=== PATIENT | female | born 1980 | race Caucasian/White ===

== ENCOUNTER 2022-11-26 04:48 | Emergency (ER) | payer BC, SELFPAY ==
[2022-11-26 05:08] VITALS: BP 137/86; PULSE 80; RESP 16; TEMP 36.4; O2SAT 98; BMI 21.2
--- NOTE | 2022-11-26 05:31 | ED_ITS ---
HPI - Allergic Reaction General Chief complaint: Allergic Reaction Stated complaint: allergic reaction Time Seen by Provider: 11/26/22 05:10 Source: patient Mode of arrival: Ambulatory History of Present Illness HPI narrative: Patient is a 42-year-old female. She is visiting from [place]. She is here [facility]. She is here for multiple complaints to include concern for an allergic reaction. States she woke up in the middle of the night feel like her tongue is swollen and then when she went to go use the bathroom and she looked in the mirror she thought the right side of her face was swollen as well. She is not had any vomiting. No fevers. No shortness of breath. She is unsure as to any potential exposures that she is had although she has been traveling quite a bit recently. She also states that she is having vaginal itching. She did use an [id number] vaginal cream yesterday. She thought that maybe her symptoms are improving somewhat. She also took Valtrex because of a cold sore on her mouth. She is not sexually active. No concern about sexually transmitted diseases. Related Data Allergies Allergy/AdvReac Type Severity Reaction Status Date / Time codeine Allergy Verified 11/26/22 05:42 Review of Systems Constitutional Constitutional: Reports system reviewed and no additional complaints, except as documented ENT Ears, Nose, Mouth, and Throat: Reports system reviewed and no additional complaints, except as documented Respiratory Respiratory: Reports system reviewed and no additional complaints, except as documented Genitourinary Genitourinary: Reports system reviewed and no additional complaints, except as documented Integumentary/Breasts Skin/Breast: Reports system reviewed and no additional complaints, except as documented Allergic/Immunologic Allergic/Immunologic: Reports system reviewed and no additional complaints, except as documented Exam Initial Vital Signs Initial Vital Signs: Vital Signs Temperature 97.5 F L 11/26/22 05:08 Pulse Rate 80 11/26/22 05:08 Respiratory Rate 16 11/26/22 05:08 Blood Pressure 137/86 11/26/22 05:08 Pulse Oximetry 98 11/26/22 05:08 Oxygen Delivery Method Room Air 11/26/22 05:08 Const General: cooperative, comfortable and No ill appearing HENMT Head: normal to inspection and normocephalic Face and sinus: normal facial exam Mouth: oral mucosae normal, lip normal and tongue normal Resp Effort & Inspection: normal respiratory effort Auscultation: clear to auscultation bilaterally Cardio Rate: regular rate GI Inspection: normal to inspection and non-distended Other: Normal external female genitalia She does have a white discharge which potentially could have been the intravaginal medication she used yesterday because of the itching. No other lesions noted. Skin General: no rashes or lesions noted Neuro General: patient alert, patient awake and moves all extremities Extrem General: capillary refill normal Course Orders Ordered: ED Orders 11/26/22 05:31 PRINCESS prep [PRINCESS Prep] Stat Wet Prep Tric BV Norma Stat Discontinued Medications Diphenhydramine HCl (Diphenhydramine 25 Mg Tablet) 25 mg PO NOW ONE Stop: 11/26/22 05:32 Last Admin: 11/26/22 06:05 Dose: 25 mg Vital Signs Vital signs: Vital Signs - 8 hr 11/26/22 05:08 Temperature 97.5 F L Pulse Rate 80 Respiratory Rate 16 Blood Pressure 137/86 Pulse Oximetry 98 Oxygen Delivery Method Room Air MDM - Allergic Reaction MDM Narrative Medical decision making narrative: Her intraoral exam is unremarkable. She is no uvula swelling. Her tongue is unremarkable. Her face seems symmetric to me on exam. She is not having any respiratory distress. No skin rashes. Unsure exact etiology of any potential allergic reaction but patient is certainly not having an anaphylactic reaction. She was given a dose of Benadryl. I discussed with her options with regard to the vaginal complaints that she is having. Discuss potentially just having her continue the [id number] medication versus doing a pelvic exam and obtaining swabs. Patient states she would prefer to have the pelvic exam so that we could determine if there was something that required antibiotics. Patient's PRINCESS and wet prep are negative for yeast infection or bacterial vagino sis. Advised that she continue to use the [id number] medication as needed. She reports that her tongue swelling seems to have improved after the Benadryl here in the ER. Will discharge patient home with return precautions. She expressed understanding and agreement. Discharge Plan Departure Patient Disposition: Home Clinical Impression: Allergic reaction, Vaginal irritation Instructions: DI for General Allergic Reactions Activity Restrictions/Additional Instructions: If you feel like the symptoms related to your tongue in the right side of your face start to return you can take another dose of Benadryl. You can continue to use the [id number]-[id number] vaginal cream as needed as well. Return to the emergency department for new or worsening symptoms. Stand Alone Forms: Patient Portal/API
--- NOTE | 2022-11-26 05:59 | PC.NURSE ---
Pelvic exam completed, this RN present to assist during procedure. Wet mount collected and sent to lab. Patient tolerated exam well. She denies any immediate needs. Awaiting results.
[2022-11-26] MEDS: diphenhydrAMINE 25 MG TABLET PO (06:05)
[2022-11-26 06:53] VITALS: BP 113/61; PULSE 66; RESP 16; TEMP 36.8
== END 2022-11-26 06:54 | disposition home or self-care (01) ==
PROVIDERS: Emergency Provider Emergency Medicine
DX: T78.40XA Allergy, unspecified, initial encounter (principal); N89.8 Other specified noninflammatory disorders of vagina
CPT/HCPCS: 87210; 87220; 99283